=== PATIENT | male | born 1955 | race Caucasian/White ===

== ENCOUNTER 2024-11-28 12:10 | Emergency (ER) | payer MEDICARE, BC, SELFPAY ==
[2024-11-28 12:16] VITALS: BP 160/91
[2024-11-28 15:06] LABS: Urine Albumin Trace (Neg - Trace); Urine Bilirubin Negative (Negative); Urine Character Clear (Clear); Urine Color Yellow; Urine Glucose Negative (Negative); Urine Ketone Negative (Negative); Urine Leukocyte Negative (Negative); Urine Nitrite Negative (Negative); Urine Occult Blood 2+ (Negative); Urine Specific Gravity 1.015 (<1.030); Urine Urobilinogen Negative (Neg - 1+); Urine pH 6.5 (5.0-9.0)
[2024-11-28 15:23] LABS: Urine Squamous Cell 0-2 /LPF (Few)
[2024-11-28 15:24] LABS: Urine Bacteria Few (Negative); Urine Mucus Few; Urine Red Blood Cell 0-2 /HPF (0-2); Urine White Cell 0-2 /HPF (0-5)
--- NOTE | 2024-11-28 16:29 | ED.GENMED ---
History of Present Illness
General
Chief Complaint: Fall
Source: patient
Exam Limitations: none
Time Seen by Provider: 11/28/24 13:05
Nursing documentation reviewed up to this point in time: agreed with
History of Present Illness
History of Present Illness:
69-year-old male presenting to the emergency department after slipping on ice twisting his left ankle and also hitting his low back. Ongoing discomfort to the area denies any head strike not on blood thinners no neck pain no numbness or weakness.
Past History
Past History
ED Past Medical History: HTN and Other (Cervical disc disease, previous left head and neck cancer, bilateral knee operations was recently diagnosed with panic attacks)
ED Past Surgical History: None
Social History
Living: with family
Family History
Family History: Negative Diabetes, Hypertension or CAD
Review of Systems
Review of Systems
Allergies reviewed?: Yes
All Other Systems: ROS reviewed and negative except as documented in HPI and ROS
Phy Exam
Physical Exam
Physical Exam:
GENERAL: Alert , in no apparent distress
EYE: pupils equal and reactive
NECK: Supple, no significant adenopathy.
ENT: o/p clr, mmm.
CARDIAC: Regular rate and rhythm .
LUNGS: Clear breath sounds bilaterally, no acute respiratory distress, no wheezes/rales/rhonchi
ABDOMEN: Soft, without focal tenderness, no r/g, no cvat
NEUROLOGICAL: Alert and oriented, no focal neuro deficits
SKIN: Warm and dry, skin intact.
MUSCULOSKELETAL: Discomfort mild swelling to the left foot at the left lateral malleolus and top of the foot. No redness or warmth good range of motion no edema, well perfused.
PSYCH: Normal and appropriate interaction.
Course
Orders/Labs/Results
Orders:
Orders
11/28/24 12:12
CR Ankle - Left Min 3 Views Urgent
Comment:
Reason For Exam: pain
CR Foot - Left Min 3 Views Urgent
Comment:
Reason For Exam: pain
Lumbar Spine Complete, 4 View [CR Lumbar Spine Comp Min 4 Vw*] Urgent
Comment:
Reason For Exam: pain
11/28/24 14:32
Urinalysis Reflex To Culture Urgent
Date Specimen was Collected: 11/28/24
Time Specimen was Collected: 14:29
Urine Microscopic Reflex Cult Urgent
11/28/24 15:56
boot [Ortho Boot Left- Treatment] ONCE
Short or tall?: Tall
Abnormal Lab Results
11/28/24
14:32
Ur Occult Blood Reflex 2+ A
(Negative)
Urine Bacteria (Reflex) Few A
(Negative)
Vital Signs
Initial and Last Documented VS:
Initial Vital Signs
Temp Pulse Resp BP Pulse Ox
98.4 F 74 18 160/91 98
11/28/24 12:16 11/28/24 12:16 11/28/24 12:16 11/28/24 12:16 11/28/24 12:16
Last Documented Vital Signs
Temp Pulse Resp BP Pulse Ox
98.4 F 74 18 160/91 98
11/28/24 12:16 11/28/24 12:16 11/28/24 12:16 11/28/24 12:16 11/28/24 12:16
MDM/Problems Addressed
MDM/Problems Addressed:
61-year-old male presenting to the emergency department after slipping on ice twisting his left ankle and hitting his low back. Here no reproducible pain to the low back x-ray without signs of emergent findings. Left ankle with minimal discomfort
to palpation good range of motion. X-ray without signs of emergent fracture. Patient with likely sprain. Plan for close outpatient follow-up return precautions given. Otherwise table for discharge.
*Critical Care Note
Total Time (30-74mins, 75-104mins- exclusive of procedures): Not Applicable
ED Attending Note
-
Portions of this chart may have been created with voice recognition software.� Occasional wrong word or��sound alike� substitutions may have occurred due to the inherent limitations of voice recognition software.
Discharge Plan
Departure
Patient Disposition: Home (Routine Discharge)
Date of Disposition: 11/28/24
Time of Disposition: 16:29
Patient with high blood pressure during this ER visit?: No
Condition: Good
Covid-19: Not Applicable
Discharge Problem:
Ankle sprain
Instructions: Preventing falls in adults
Prescriptions:
New
oxycodone 5 mg tablet
5 mg PO Q8H PRN (Reason: Pain) Qty: 7 0RF
No Action
lisinopril 20 MG tablet
20 mg PO DAILY
metoprolol succinate 50 MG tablet extended release 24 hr
50 mg PO DAILY
meloxicam 7.5 MG tablet
7.5 mg PO BID
erythromycin 5 mg/gram (0.5 %) ointment
0.5 inch ophthalmic (eye) TID 5 Days Qty: 3.5 0RF
Referrals:
Rakan Traylor MD [Active] - Follow up in 5-7 days
Tanya Sequeira CRNP [Family Provider] -
Activity Restrictions/Additional Instructions:
You came to the emergency department today after a fall. Here you did not have any evidence of any emergent injuries. Please rest ice elevate and follow-up closely with orthopedics as needed. Return for any worsening, new or concerning symptoms.
Interventions
Interventions:
*Risk Screen - Suicide Last Done: 11/28/24 12:16
*General Assessment Last Done: 11/28/24 12:16
*Neglect/Abuse Screening Last Done: 11/28/24 12:16
*Nursing Disposition Last Done: 11/28/24 16:49
ED-Musculoskeletal Assessment Last Done: 11/28/24 12:46
ED- Neurological Assessment Last Done: 11/28/24 12:46
ED-Skin Assessment Last Done: 11/28/24 12:46
Discharge Date and Time
Discharge Date/Time: 11/28/24 16:49
Print Language: PERUVIAN
== END 2024-11-28 16:49 | disposition home or self-care (01) ==
LOC: EMR 12:10
PROVIDERS: Physician Assistant; EMERGENCY PHYSICIAN Student in an Organized Health Care Education/Training Program; FAMILY PHYSICIAN Nurse Practitioner Family
DX: S93.409A Sprain of unspecified ligament of unspecified ankle, initial encounter (principal); W00.0XXA Fall on same level due to ice and snow, initial encounter; I10 Essential (primary) hypertension
CPT/HCPCS: 99283; 72110; 73610; 73630; 81003; 81015

== ENCOUNTER 2025-01-19 05:19 | Inpatient (IN) | payer MEDICARE, BC, SELFPAY ==
[2025-01-19] VITALS (10 sets, daily range): BP systolic 137–213; BP diastolic 80–120; BMI 38.8
--- NOTE | 2025-01-19 02:07 | ED.GENMED ---
History of Present Illness
General
Chief Complaint: Flank Pain
Source: patient
Exam Limitations: none
Time Seen by Provider: 01/19/25 01:53
Nursing documentation reviewed up to this point in time: agreed with
History of Present Illness
History of Present Illness:
The patient is a 69-year-old man who reports several days of left lower back pain radiating into his left lower abdomen. Patient reports that at times it is severe but then dulls out. Currently it is moderate. He denies any associated nausea,
vomiting, fevers or chills. He denies pain or difficulty with urination. He denies blood in his urine. Nothing makes the pain better or worse.
Past History
Past History
ED Past Medical History: HTN and Other (Cervical disc disease, previous left head and neck cancer, bilateral knee operations was recently diagnosed with panic attacks)
ED Past Surgical History: Orthopedic
Social History
Tobacco: Other
Alcohol: Other
Drug: None
Personal:
Living: with family
Employment: Other
Family History
Family History: Negative Diabetes, Hypertension or CAD
Review of Systems
Review of Systems
Allergies reviewed?: Yes
All Other Systems: ROS reviewed and negative except as documented in HPI and ROS
Constitutional: Reports no symptoms
EENT: Reports no symptoms
Respiratory: Reports no symptoms
ABD/GI: Reports abdominal pain
: Reports flank pain
Musculoskeletal: Reports back pain
Skin: Reports no symptoms
Neurological: Reports no symptoms
Endocrine: Reports no symptoms
Hematologic/Lymphatic: Reports no symptoms
Psychiatric: Reports no symptoms
Phy Exam
Physical Exam
Physical Exam:
Physical Exam
General: no apparent distress, not acutely ill. Well appearing
Neck: supple. no meningeal signs. normal psoterior pharynx
Heart: s1/s2 regular rate and rhythm, no murmur. equal radial pulses.
Lungs: no acute respiratory distress. clear bilaterally
Abdomen: normal bowel sounds. not tender. no CVAT. No pulsatile mass
Neuro: alert and oriented. no focal neurological deficits
Skin: no rash
Psychiatric: well kept. interactive and cooperative
Extremities: no edema. no calf tenderness. negative homans. good distal pulses
Course
Orders/Labs/Results
Orders:
Orders
01/19/25 02:06
CT Abd/pel Without Iv Or Oral Urgent
Comment:
Reason For Exam: LLQ pain radiating into L flank
01/19/25 02:27
Complete Blood Count/With Diff Urgent
Comprehensive Metabolic Panel Urgent
Urinalysis Reflex To Culture Urgent
Date Specimen was Collected: 01/19/25
Time Specimen was Collected: 02:23
Ketorolac [Toradol] 15 mg IV NOW STA
Abnormal Lab Results
01/19/25
02:27
RBC 4.37 L 10^6/uL
(4.70-6.10)
MCH 31.4 H pg
(27.0-31.0)
Monocytes % 9.6 H %
(1.7-9.3)
Glucose 102 H mg/dl
(70-99)
01/19/25 02:27
01/19/25 02:27
Vital Signs
Initial and Last Documented VS:
Initial Vital Signs
Temp Pulse Resp BP Pulse Ox
98.4 F 68 24 213/120 98
01/19/25 01:26 01/19/25 01:26 01/19/25 01:26 01/19/25 01:26 01/19/25 01:26
Last Documented Vital Signs
Temp Pulse Resp BP Pulse Ox
98.4 F 64 16 160/89 97
01/19/25 01:26 01/19/25 03:13 01/19/25 03:13 01/19/25 03:13 01/19/25 03:13
MDM/Problems Addressed
Differential Diagnosis Includes:
Acute renal colic, acute diverticulitis, aortic aneurysm
MDM/Problems Addressed:
Patient presents with acute left-sided abdominal pain
Chronic conditions affecting care: HTN
Acute Exacerbation and/or Progression of Chronic Illness:
Patient is acutely hypertensive, likely due to anxiety related to being in the ED and patient
Acute Exacerbation and/or Progression of Chronic Illness: HTN
*Radiology
Radiology exam reviewed: radiology read reviewed
*Pulse Oximetry
Patient hypoxic: no
*EKG
Interpreted by ED Provider?: NA
*General Milling Superintendent Interpretation
Rate: General Milling Superintendent- N/A
*Critical Care Note
Total Time (30-74mins, 75-104mins- exclusive of procedures): Not Applicable
Data Reviewed
Review of Other/Old Records Reveals: Radiology Studies (Lumbar spine x-rays reviewed from November 2024 which did not show any signs of obvious kidney stone)
Source: patient
Update Note
Update Note:
It is unclear as to what caused the patient to develop a left renal subcapsular hematoma. He is not on any blood thinners. He does report that he fell about 3 weeks ago reports that the pain only started few days ago
ED Attending Note
-
Portions of this chart may have been created with voice recognition software.� Occasional wrong word or��sound alike� substitutions may have occurred due to the inherent limitations of voice recognition software.
Discharge Plan
Departure
Patient Disposition: Admit
Date of Disposition: 01/19/25
Time of Disposition: 03:29
Presentation/result/management discussed w/ accepting MD/DO: Hospitalist
Patient with high blood pressure during this ER visit?: Yes
Condition: Good
Covid-19: Not Applicable
Discharge Problem:
Spontaneous L renal subcapsular hematoma
Prescriptions:
No Action
lisinopril 20 MG tablet
20 mg PO DAILY
metoprolol succinate 50 MG tablet extended release 24 hr
50 mg PO DAILY
meloxicam 7.5 MG tablet
7.5 mg PO BID
erythromycin 5 mg/gram (0.5 %) ointment
0.5 inch ophthalmic (eye) TID 5 Days Qty: 3.5 0RF
oxycodone 5 mg tablet
5 mg PO Q8H PRN (Reason: Pain) Qty: 7 0RF
Referrals:
Tanya Sequeira CRNP [Family Provider] -
Interventions
Interventions:
*Risk Screen - Suicide Last Done: 01/19/25 01:26
*General Assessment Last Done: 01/19/25 02:25
*Neglect/Abuse Screening Last Done: 01/19/25 01:26
*ED- Fall Risk Assessment Last Done: 01/19/25 02:25
*ED COVID-19 Vaccine History Last Done: 01/19/25 02:25
VT-Dvrgke-Goixoniiml Assessment Last Done: 01/19/25 02:25
ED-Male Genitourinary Assessment Last Done: 01/19/25 02:25
Discharge Date and Time
Print Language: GIBRALTARIAN
[2025-01-19 02:34] LABS: Urine Albumin Negative (Neg - Trace); Urine Bilirubin Negative (Negative); Urine Glucose Negative (Negative); Urine Ketone Negative (Negative); Urine Leukocyte Negative (Negative); Urine Nitrite Negative (Negative); Urine Occult Blood Negative (Negative); Urine Urobilinogen Negative (Neg - 1+); Urine pH 6.5 (5.0-9.0)
[2025-01-19 02:35] LABS: Urine Character Clear (Clear); Urine Color Yellow
[2025-01-19] MEDS: TORADOL 15 MG IV (02:36)
[2025-01-19 02:47] LABS: % Basophils 0.5 % (0-2); % Eosinophils 1.6 % (0-6); % Immature Granulocytes 0.3 % (0-0.5); % Lymphocytes 21.8 % (20.5-51.1); % Monocytes 9.6 % (1.7-9.3); % Neutrophils 66.2 % (42.2-75.2); Absolute Eosinophils 0.1 10^3/uL (0-0.7); Absolute Lymphocytes 1.4 10^3/uL (1.2-3.4); Absolute Monocytes 0.6 10^3/uL (0.1-0.6); Absolute Neutrophils 4.2 10^3/uL (1.4-6.5); Hematocrit 39.9 % (39.0-52.0); Hemoglobin 13.7 g/dL (13.0-18.0); Mean Corp Hgb Conc. 34.3 g/dL (33.0-37.0); Mean Corpuscular Hgb 31.4 pg (27.0-31.0); Mean Corpuscular Volume 91.3 fL (80.0-94.0); Mean Platelet Volume 9.4 fL (7.4-10.4); Nucleated Red Blood Cells % 0 % (-); Platelet Count 162 10^3/uL (130-400); Red Blood Cell Count 4.37 10^6/uL (4.70-6.10); Red Cell Dist. Width 12.8 % (11.5-14.5); White Blood Cell Count 6.3 10^3/uL (4.8-10.8)
[2025-01-19 03:20] LABS: ALT (SGPT) 49 U/L (0-50); AST (SGOT) 39 U/L (17-59); Albumin 4.4 g/dl (3.5-5.0); Alkaline Phosphatase 100 U/L (38-126); Blood Urea Nitrogen 20 mg/dl (9-20); Carbon Dioxide 30 mmol/L (22-30); Chloride 99 mmol/L (98-107); Glucose 102 mg/dl (70-99); Potassium 3.6 mmol/L (3.5-5.1); Sodium 137 mmol/L (135-145); Total Bilirubin 0.6 mg/dl (0.2-1.3); Total Protein 6.8 g/dl (6.3-8.2); eGFR > 60.00
--- NOTE | 2025-01-19 04:34 | HPS.HSE ---
Family Physician
-
Family Physician: Tanya Sequeira
Chief Complaint
-
Left-sided flank pain
History of Present Illness
This is a 69-year-old male with past medical history significant for hypertension, BPH, chronic back pain will presents to the emergency department with 4 days of left-sided flank pain.
Patient reported that about 3 weeks ago he had a fall from around a standing height and landed on his left side. He was evaluated in an emergency department. Did not receive any CT imaging at that time. The x-rays that were done were
unremarkable. Patient received analgesics and felt well. He had no pain for about 2 weeks up until last week Saturday when he started having left-sided flank pain. Denied dysuria. Denied hematuria. He denied any fevers or chills. He had no
nausea or vomiting. He is not been taking any NSAIDs or blood thinners.
Patient saw his physician who did a urine and with recommended ED visit for imaging for concern for likely kidney stone.
Patient on arrival in the emergency department was afebrile, blood pressure was 160/89 with a pulse of 64. CBC was unremarkable with a hemoglobin of 13.7 with normal WBCs and platelets. Electrolytes BUN/creatinine were all normal. UA was
unremarkable. A CT of the abdomen and pelvis showed a 6.6 x 3.1 x 12.1 cm subcapsular fluid collection along the posterior margin of the left kidney, may represent a subacute hematoma. Super infection not excluded by imaging. There is an apparent
upper lobe left kidney lesion with mild lobulation concerning for a possible renal mass.
Medical History
Past Medical History
Past Medical History: Reports HTN and Other (BPH)
Past Surgical History: Reports Orthopedic (Knee arthroplasty, carpal tunnel surgery)
Social History
Tobacco: Former Smoker
Alcohol: Occasional
Drug: None
Personal:
Family History
Family History: Not pertinent
Allergies / Home Medications
Allergies reflects when Allergies were last updated in [facility].
Home Medications with original date entered in [facility]
Allergy/Medication List:
Allergies
Allergy/AdvReac Type Severity Reaction Status Date / Time
No Known Allergies Allergy Verified 01/19/25 01:29
Home Medications
lisinopril 20 mg tablet 20 mg PO DAILY 01/04/12
meloxicam 7.5 mg tablet 7.5 mg PO BID 05/15/14
Cymbalta 1 tab PO DAILY 01/19/25
hydrochlorothiazide 25 mg PO DAILY 01/19/25
Review of Systems
-
History Source: Patient
Constitutional: Reports No Symptoms
EENT: Reports No Symptoms
Respiratory: Reports No Symptoms
Cardiac: Reports No Symptoms
Abdomen/GI: Reports No Symptoms
: Reports Flank Pain
Musculoskeletal: Reports No Symptoms
Skin: Reports No Symptoms
Neurological: Reports No Symptoms
Endocrine: Reports No Symptoms
Hematologic/Lymphatic: Reports No Symptoms
Psych: Reports No Symptoms
Physical Exam
Vital Signs
Vital Signs
Temp Pulse Resp BP Pulse Ox
98.4 F 64 16 160/89 97
01/19/25 01:26 01/19/25 03:13 01/19/25 03:13 01/19/25 03:13 01/19/25 03:13
Physical Exam
General: Well Developed, Well Nourished, Comfortable and Conversant
HEENT: NormoCephalic, Anicteric, Moist mucous membranes and Atraumatic
Respiratory: Clear
Cardiac: S1/S2 and Regular Rhythm
Breast: Deferred by me
GI: Soft, Non Tender, Normal Bowel Sounds and Distended
Rectal: Deferred by Provider
Genito-urinary: Deferred by me
Musculoskeletal: No Clubbing, No Cyanosis and No Edema
Skin: Warm and Dry
Neuro: AO x 3 and Nonfocal/grossly intact
Hematologic/Lymphatic: No Lymphadenopathy
Psych: Calm
Laboratory Results
-
01/19/25 02:27
01/19/25 02:27
Laboratory Results
Total Bilirubin 0.6 mg/dl (0.2-1.3) 01/19/25 02:27
AST 39 U/L (17-59) 01/19/25 02:27
ALT 49 U/L (0-50) 01/19/25 02:27
Alkaline Phosphatase 100 U/L (38-126) 01/19/25 02:27
Data Reviewed
-
CT Scan: Report Reviewed by me
Lab Data: Labs Reviewed by me
Old Records: Reviewed
Impression/Plan
-
IMPRESSION:
69 y.o male with Left flank pain found to have a large subcapsular renal hematoma. Had a fall about 2 weeks prior to onset of the flank pain but unlikely a fall from standing height would have resulted in rupture. No hematuria on history and u/a
is completely bland. Hemodynamically stable. Well appearing and no significant abdominal pain. Hemoglobin is stable. Suspect spontaneous subcapsular hematoma as no known significant trauma. No recent instrumentation/biopsy, no thinners. A
fairly rare condition. Does not appear to have active bleeding.
PLAN:
Left renal hematoma - Spontaneous, likely ruptured cyst or a mass
- admit to telemetry for now
- no thinners
- appears to not have active bleeding and can be managed conservatively
- rule out renal mass vs cyst with a renal mass protocol CT per radiology
- urology consulted
- type and screened, trend h/h, consented
- npo for now, maintenance fluids, pain control and antiemetics
DVT PPX - SCDs
Code status - Full Code
[2025-01-19] MEDS: DILAUDID 0.5 MG IV ×3 (06:53→19:49)
[2025-01-19] MEDS: D5/0.45%NACL 1000 IV (09:01)
[2025-01-19] MEDS: CYMBALTA DELAYED RELEASE 60 MG PO (09:01)
--- NOTE | 2025-01-19 09:27 | W.PN.UPDATE ---
Update Note
Progress Note Update
Seen by Dr. Mane this am
Admitted for left flank pain and noted to have left subcapsular renal hematoma on noncontrast CT. Hemodynamically stable. H&H on admission was okay. No hematuria noted.
A CT with and without contrast requested for further assessment. Urology consulted-pending evaluation.
Continue with current treatments.
[2025-01-19] MEDS: ROXICODONE 5 MG PO (11:14)
[2025-01-19 13:54] LABS: Hematocrit 38.7 % (39.0-52.0); Hemoglobin 13.2 g/dL (13.0-18.0)
--- NOTE | 2025-01-19 15:53 | CM ---
CM reviewed medical records. Patient is otherwise independent. Patient has a PCP and medication coverage.
PLAN: home no needs.
[2025-01-19] MEDS: ORETIC 25 MG PO (21:37)
[2025-01-19] MEDS: FLOMAX 0.4 MG PO (21:37)
[2025-01-19] MEDS: ZESTRIL 40 MG PO (21:37)
[2025-01-20] MEDS: DILAUDID 0.5 MG IV ×2 (00:07→04:27)
[2025-01-20 03:15] VITALS: BP 142/81
[2025-01-20] MEDS: ROXICODONE 5 MG PO ×2 (04:31→09:34)
[2025-01-20] MEDS: D5/0.45%NACL 1000 IV (04:35)
--- NOTE | 2025-01-20 05:59 | DOWNTIME ---
There was a [employer] Downtime on 01/20/2025 from 0100 to 01/21/2024 at 0420 . Downtime documentation of patient's care, including medication administrations, has been reconciled in the electronic record per guidelines. Refer to the
patient's paper chart under the miscellaneous tab to see printed paper medication records and downtime forms.
[2025-01-20 07:35] VITALS: BP 161/85
[2025-01-20] MEDS: CYMBALTA DELAYED RELEASE 60 MG PO (07:58)
[2025-01-20 08:25] LABS: Hematocrit 39.3 % (39.0-52.0); Hemoglobin 13.3 g/dL (13.0-18.0); Mean Corp Hgb Conc. 33.8 g/dL (33.0-37.0); Mean Corpuscular Hgb 31.4 pg (27.0-31.0); Mean Corpuscular Volume 92.9 fL (80.0-94.0); Mean Platelet Volume 9.8 fL (7.4-10.4); Platelet Count 150 10^3/uL (130-400); Red Blood Cell Count 4.23 10^6/uL (4.70-6.10); White Blood Cell Count 6.2 10^3/uL (4.8-10.8)
[2025-01-20 08:35] LABS: INR 1.01; PT 13.8 Sec (11.4-14.6)
[2025-01-20 08:36] LABS: APTT 28.5 Sec (23.4-35.0)
[2025-01-20 08:50] LABS: Blood Urea Nitrogen 15 mg/dl (9-20); Calcium 9.3 mg/dl (8.4-10.2); Carbon Dioxide 33 mmol/L (22-30); Chloride 95 mmol/L (98-107); Estimated Creatinine Clearance 123 ml/min; Glucose 111 mg/dl (70-99); Magnesium 2.1 mg/dl (1.6-2.3); Potassium 3.9 mmol/L (3.5-5.1); Sodium 134 mmol/L (135-145); eGFR > 60.00
[2025-01-20] MEDS: TYLENOL 650 MG PO (09:33)
--- NOTE | 2025-01-20 10:09 | W.PN.HOSP.TC ---
Today's Communication/Plan
-
DC
Assessment / Plan
Assessment / Plan
IMPRESSION:
69 y.o male with Left flank pain found to have a large subcapsular renal hematoma. Had a fall about 2 weeks prior to onset of the flank pain . Not on AC.
PLAN:
Left subcapsular renal hematoma -recent history of trauma noted. Unclear if related to it but based on the history likely. Is hemodynamically stable. H&H has been stable. With the discovery of left upper pole 1.6 cm renal mass cannot rule out
any association of the hematoma with it.
No evidence of fever. No hematuria.
Appreciate urology input who has cleared him for discharge. The plan is to repeat imaging in a month.LAMBERT Mandujano this am in the unit about the plan.
Will discharge patient home on a few days of oxycodone. He was advised to avoid lifting heavy weights or excessive activity. Okay with activities of daily living.
Hypertension-continue the home medication.
More than 30 minutes spent in discharge including
Final examination of the patient
Summarizing hospital stay
Instructions for continuing care to all relevant caregivers
Preparation of discharge records, prescriptions, and referral forms
Total time spent (in minutes): 31
Anticipated Discharge: Today
Subjective/Interval History
-
Date of Service: January 20, 2025
Pain better now after getting pain medication. Localized to left flank. No nausea vomiting. No hematuria. No fevers.
Not short of breath.
Objective Data
-
Labs:
Laboratory Results
01/20/25
07:46
WBC 6.2
Hgb 13.3
Hct 39.3
Plt Count 150
PT 13.8
INR 1.01
APTT 28.5
Sodium 134 L
Potassium 3.9
Chloride 95 L
Carbon Dioxide 33 H
BUN 15
Creatinine 0.8
Glucose 111 H
Calcium 9.3
Vital Signs:
Vital Signs
Temp Pulse Resp BP Pulse Ox
97.3 F 65 17 161/85 97
01/20/25 07:35 01/20/25 07:35 01/20/25 07:35 01/20/25 07:35 01/20/25 07:35
I&O
01/19/25 01/20/25 01/21/25
06:59 06:59 06:59
Intake Total 980 / 980 240 / 240
Balance 980 / 980 240 / 240
Review of Systems
-
Constitutional: Denies Fever or Chills
Respiratory: Denies Cough
Cardiac: Denies Chest Pain
Abdomen/GI: Denies Nausea or Vomiting
Neuro: Denies Dizzy
Physical Exam
-
General: Comfortable
Respiratory: Clear to Auscultation and Non Labored Respirations; Negative Accessory Resp Muscle Use
Cardiac: Regular Rhythm and S1/S2
GI: Soft and Nontender
Genito-urinary: Costovertebral Angle Tend (some discomfort in left )
Neuro: AO x 3
Data Reviewed
-
CT Scan: Report Reviewed by me (ct abdo with and without contrast)
Labs: Labs Reviewed by me
--- NOTE | 2025-01-20 10:19 | W.DCSUMMARY ---
Discharge Summary
Discharge Data
Date of Admission: 01/19/25
Date of Discharge: 01/20/25
-
Pending Results: No
Hospital Course
Primary diagnosis:
Large subcapsular left renal hematoma
Left upper pole 1.6 cm mass
Secondary diagnosis:
Hypertension
Hospital course:
61-year-old gentleman presented with a left flank pain and was discovered to have large left subcapsular renal hematoma. He was hemodynamically stable. His H&H was stable. He had no hematuria. He had initial noncontrast CT followed by contrast
CT of the abdomen which showed large left subcapsular renal hematoma but there was also 1.6 cm enhancing right upper pole mass. Unclear etiology for hematoma. He did have a fall slipping on ice twisting his left ankle and hitting his left side of
the abdomen n the low back 11/28/24. He was seen in the ER had evaluation and was discharged home.
He says his low back pain got better but then again started to have left flank pain. No recurrent trauma. Not on any blood thinners.
Unclear at this point that the hematoma is from his recent trauma or spontaneous from the left upper pole mass. Patient would need to repeat his CT imaging in a month according to the urologist. He was advised no heavy weight lifting for now. He
was also advised to watch out for any fever or any sudden changes in the character of the pain.
He was seen by urologist who felt that his stable for outpatient follow up.
Consultants on board:
Urology-Nick Griffith
Discharge Plan
-
Patient Disposition: Home (Routine Discharge)
Discharge Diagnosis/Procedures: Large left subcapsular renal hematoma, left upper pole 1.6 cm mass
Diet: 2 Gram Sodium
Activity: No strenuous activity
Driving Restrictions: As prior to admission
Bathing Restrictions: None
Referrals:
Nick Mandujano MD [Active] - in one month
Tanya Sequeira CRNP [Family Provider] - in less than 1 week
Prescriptions:
New
acetaminophen 325 mg Tablet
650 mg PO Q4HPRN PRN (Reason: mild pain/LEMONS/temp> 100.4F) Qty: 1 0RF
polyethylene glycol 3350 17 gram Powder In Packet
17 g PO DAILY Qty: 15 0RF
Rx Instructions:
while on pain medication oxycodone
oxycodone 5 mg Tablet
5 mg PO Q6HPRN PRN (Reason: moderate pain) Qty: 28 0RF
Continued
hydrochlorothiazide 25 mg Tablet
25 mg PO QPM
duloxetine [Cymbalta] 60 mg Capsule,Delayed Release(Dr/Ec)
60 mg PO DAILY
meloxicam 7.5 mg Tablet
7.5 mg PO BIDPRN PRN (Reason: mild pain)
alprazolam [Xanax] 0.5 mg Tablet
0.5 mg PO BIDPRN PRN (Reason: anxiety)
tamsulosin [Flomax] 0.4 mg Capsule
0.4 mg PO HS
lisinopril 40 mg Tablet
40 mg PO QPM
cholecalciferol (vitamin D3) [Vitamin D3] 50 mcg (2,000 unit) Capsule
50 mcg PO DAILY
Discharge Orders:
Discharge Patient (As Directed); Ordered 01/20/25
Ordered By: Jamar London
Discharge Date and Time
Print Language: [place]
--- NOTE | 2025-01-20 11:04 | CM ---
Patient seen at bedside. IMM completed and signed form placed on chart. patient coming on 12;05 train and patient stated he has no needs. CM will continue to follow for discharge planning needs.
Plan; home with no needs anticipated
--- NOTE | 2025-01-20 11:10 | CONS.URO ---
Medical History
History of Present Illness
69M admitted with acute L flank pain
Had a fall at home about 2 weeks ago but no sx until recently
CT showed a 9cm subcapsular hematoma
HGB and vitals stable and was admitted for observation
No family hx malignancy
Follow up CT showed stable [id number] hematoma as well as a 1.6cm enhancing renal mass suspicious for RCC
Past Medical History
Past Medical History: HTN and Other (BPH)
Social History
Tobacco: Former Smoker
Drug: None
Family History
Family History: Reviewed & Not Pertinent
Allergies/Home Medications
Allergies
Allergy/AdvReac Type Severity Reaction Status Date / Time
No Known Allergies Allergy Verified 01/19/25 01:29
Home Medications
�Medication �Instructions �Recorded �Confirmed �Type
alprazolam 0.5 mg tablet (Xanax) 0.5 mg PO BIDPRN PRN anxiety 01/19/25 01/19/25 History
cholecalciferol (vitamin D3) 50 50 mcg PO DAILY 01/19/25 01/19/25 History
mcg (2,000 unit) capsule (Vitamin
D3)
duloxetine 60 mg capsule,delayed 60 mg PO DAILY 01/19/25 01/19/25 History
release (Cymbalta)
hydrochlorothiazide 25 mg tablet 25 mg PO QPM 01/19/25 01/19/25 History
lisinopril 40 mg tablet 40 mg PO QPM 01/19/25 01/19/25 History
meloxicam 7.5 mg tablet 7.5 mg PO BIDPRN PRN mild pain 01/19/25 01/19/25 History
tamsulosin 0.4 mg capsule (Flomax) 0.4 mg PO HS 01/19/25 01/19/25 History
acetaminophen 325 mg tablet 650 mg (2 x 325 mg) PO Q4HPRN PRN 01/20/25 Rx
mild pain/LEMONS/temp> 100.4F #1 tab
oxycodone 5 mg tablet 5 mg PO Q6HPRN PRN moderate pain 01/20/25 Rx
#28 tabs
polyethylene glycol 3350 17 gram 17 g PO DAILY #15 ea 01/20/25 Rx
oral powder packet
Physical Exam
Vital Signs
Vital Signs
Temp Pulse Resp BP Pulse Ox
97.3 F 65 17 161/85 97
01/20/25 07:35 01/20/25 07:35 01/20/25 07:35 01/20/25 07:35 01/20/25 07:35
Lab / Testing Results
Laboratory Results
01/20/25 07:46
01/20/25 07:46
Physical Exam
General: Well Developed, Well Nourished and No Apparent Distress
Respiratory: Clear and Non Labored Respirations
GI: Soft and Non Tender
Genito-urinary: Costovertebral Angle Tend
Neuro: AO x 3
Psych: Calm and Intact Judgement
Assessment / Plan
-
69M with spontaneous L renal subcapsular hematoma
Possibly due to small enhancing renal mass
HGB stable and no evidence of worsening hemorrhage with inpatient observation
Stable for discharge and outpatient follow up
Will arrange follow up
Plan for repeat imaging in about 1 month
Continue PO pain control
Data Reviewed
-
CT Scan: Image personally visualized and interpreted
Lab Data: Labs Reviewed
[2025-01-20 11:26] VITALS: BP 143/78
== END 2025-01-20 13:15 | disposition home or self-care (01) | DRG 700 ==
LOC: 1 ACUTE 05:19
PROVIDERS: ADMITTING PHYSICIAN Internal Medicine; ATTENDING PHYSICIAN Internal Medicine; CONSULT PHYSICIAN Urology; EMERGENCY PHYSICIAN Emergency Medicine; FAMILY PHYSICIAN Nurse Practitioner Family
DX: S37.012A Minor contusion of left kidney, initial encounter (principal); I10 Essential (primary) hypertension; W00.0XXD Fall on same level due to ice and snow, subsequent encounter; N40.0 Benign prostatic hyperplasia without lower urinary tract symptoms; Z96.659 Presence of unspecified artificial knee joint; Z87.891 Personal history of nicotine dependence; N28.89 Other specified disorders of kidney and ureter; F41.9 Anxiety disorder, unspecified; Z79.899 Other long term (current) drug therapy; Z85.89 Personal history of malignant neoplasm of other organs and systems
CPT/HCPCS: 74170; 74176; 80048; 80053; 81003; 83735; 85014; 85018; 85025; 85027; 85610; 85730; 86850; 86900; 86901; 96374; 99285; Q9967

== ENCOUNTER → 2025-04-05 07:50 | Outpatient (REF) | payer MEDICARE, BC, SELFPAY | LOC: MRI 07:50 | PROVIDERS: ATTENDING PHYSICIAN Urology; FAMILY PHYSICIAN Nurse Practitioner Family | DX: K68.3 Retroperitoneal hematoma (principal); N28.89 Other specified disorders of kidney and ureter | CPT/HCPCS: 74183; A9585 ==

== ENCOUNTER → 2025-06-28 07:32 | Outpatient (REF) | payer MEDICARE, BC, SELFPAY | LOC: RAD 07:32 | PROVIDERS: ATTENDING PHYSICIAN Urology; FAMILY PHYSICIAN Nurse Practitioner Family | DX: N28.89 Other specified disorders of kidney and ureter (principal); S37.019A Minor contusion of unspecified kidney, initial encounter | CPT/HCPCS: 76775 ==

== ENCOUNTER → 2025-07-08 12:14 | Outpatient (REF) | payer MEDICARE, BC, SELFPAY ==
[2025-07-08 13:26] LABS: Blood Urea Nitrogen 17 mg/dl (9-20); Calcium 9.4 mg/dl (8.4-10.2); Carbon Dioxide 29 mmol/L (22-30); Chloride 103 mmol/L (98-107); Glucose 99 mg/dl (70-99); Potassium 3.6 mmol/L (3.5-5.1); Sodium 139 mmol/L (135-145); eGFR > 60.00
== END ==
LOC: REG 12:14
PROVIDERS: ATTENDING PHYSICIAN Urology; FAMILY PHYSICIAN Nurse Practitioner Family
DX: N28.89 Other specified disorders of kidney and ureter (principal)
CPT/HCPCS: 36415; 80048

== ENCOUNTER → 2025-07-12 15:45 | Outpatient (REF) | payer MEDICARE, BC, SELFPAY | LOC: RAD 15:45 | PROVIDERS: ATTENDING PHYSICIAN Urology; FAMILY PHYSICIAN Nurse Practitioner Family | DX: N28.89 Other specified disorders of kidney and ureter (principal) | CPT/HCPCS: 74170; Q9967 ==